=== PATIENT | female | born 1975 | race Caucasian/White ===

== ENCOUNTER 2020-01-10 07:47 | Outpatient (CLI) | payer BC, SELFPAY ==
--- NOTE | ~2020-01-10 | MM_ITS ---
EXAMINATION: MM screening [facility] BI w jacque HISTORY: Screening TECHNIQUE: Craniocaudal and mediolateral oblique 3-D tomosynthesis images were obtained and synthetic 2-D images were generated. CAD analysis was submitted and interpreted. COMPARISON: Comparison to multiple prior studies sequentially, with oldest reviewed study dated 08/2017. BREAST PARENCHYMAL COMPOSITION: There are scattered areas of fibroglandular density. FINDINGS: There is no evidence of suspicious mass, calcification, or architectural distortion to sugg est malignancy in either breast. There has been no suspicious interval change. IMPRESSION: 1. No mammographic evidence of malignancy. 2. Recommend routine screening mammography in one year. BI-RADS Category 1: Negative Reviewed, dictated and finalized at location A.
== END 2020-01-10 07:48 | disposition home or self-care (01) ==
LOC: ANHIMG 07:49
PROVIDERS: PCP Internal Medicine; Visit Provider Obstetrics & Gynecology
DX: Z12.31 Encounter for screening mammogram for malignant neoplasm of breast (principal)
CPT/HCPCS: 77063; 77067

== ENCOUNTER 2021-02-01 08:34 | Outpatient (CLI) | payer BC, SELFPAY ==
--- NOTE | ~2021-02-01 | MM_ITS ---
EXAMINATION: MM screening [facility] BI w jacque HISTORY: Screening TECHNIQUE: Craniocaudal and mediolateral oblique 3-D tomosynthesis images were obtained and synthetic 2-D images were generated. CAD analysis was submitted and interpreted. COMPARISON: Comparison to multiple prior studies sequentially, with oldest reviewed study dated 08/2017. BREAST PARENCHYMAL COMPOSITION: There are scattered areas of fibroglandular density. FINDINGS: The right breast is stable without evidence for malignancy. There are developing asymmetrie s in the subareolar location of the left breast. There are no suspicious calcifications. IMPRESSION: 1. Developing left breast asymmetries. 2. Additional mammographic views and possible breast ultrasound are recommended. BI-RADS Category 0: Incomplete: Needs additional imaging evaluation. Reviewed, dictated and finalized at location A. IMPRESSION: 1. Developing left breast asymmetries. 2. Additional mammographic views and possible breast ultrasound are recommended . BI-RADS Category 0: Incomplete: Needs additional imaging evaluation.
== END 2021-02-01 08:35 | disposition home or self-care (01) ==
LOC: ANHIMG 08:36
PROVIDERS: PCP Internal Medicine; Visit Provider Obstetrics & Gynecology
DX: Z12.31 Encounter for screening mammogram for malignant neoplasm of breast (principal); R92.8 Other abnormal and inconclusive findings on diagnostic imaging of breast
CPT/HCPCS: 77063; 77067

== ENCOUNTER → 2021-02-02 05:14 | Outpatient (CLI) | payer BC, SELFPAY ==
[2021-02-03 01:26] LABS: SARS-CoV-2 RNA PCR Negative
== END ==
PROVIDERS: PCP Internal Medicine; Visit Provider Internal Medicine
DX: R68.89 Other general symptoms and signs (principal); Z20.822 Contact with and (suspected) exposure to COVID-19
CPT/HCPCS: C9803; U0003; U0005

== ENCOUNTER 2021-02-17 13:36 | Outpatient (CLI) | payer BC, SELFPAY ==
--- NOTE | ~2021-02-17 | MMUS_ITS ---
EXAMINATION: MM diagnostic [facility] LT w jacque, US breast LT limited HISTORY: Follow-up left breast mass TECHNIQUE: Additional 3-D tomosynthesis images of the left breast were performed and synthetic 2-D im ages were generated. CAD analysis was submitted and interpreted. High resolution Limited left breast ultrasound was performed. COMPARISON: 02/01/2021 BREAST PARENCHYMAL COMPOSITION: Breast composed of scattered areas of fibroglandular density. FINDINGS: MAMMOGRAPHIC FINDINGS: There is a 1 cm circumscribed radiolucent mass in the subareolar location of the left breast. There a re no suspicious calcifications or architectural distortion. ULTRASOUND: Limited left breast ultrasound: At 6:00 near the nipple there is a 10 x 7 x 5 mm cyst corresponding t o the mammographic finding. No suspicious masses to suggest malignancy. IMPRESSION: 1. No evidence for malignancy in the left breast. Benign cyst. 2. Routine yearly screening mammogram and regular clinical breast examination are recommended. BI-RADS Category 2: Benign finding(s). Reviewed, dictated and finalized at location A. IMPRESSION: 1. No evidence for malignancy in the left breast. Benign cyst. 2. Routine yearly screening mammogram and regular clinical breast examination a re recommended. BI-RADS Category 2: Benign finding(s).
== END 2021-02-17 13:37 | disposition home or self-care (01) ==
LOC: ANHIMG 13:38
PROVIDERS: PCP Internal Medicine; Visit Provider Obstetrics & Gynecology
DX: N60.02 Solitary cyst of left breast (principal)
CPT/HCPCS: 76642; 77061; 77065; G0279

== ENCOUNTER 2022-04-12 08:19 | Outpatient (CLI) | payer OTHER, SELFPAY ==
--- NOTE | ~2022-04-12 | MM_ITS ---
EXAMINATION: MM screening [facility] BI w jacque HISTORY: Screening mammogram TECHNIQUE: Craniocaudal and mediolateral oblique 3-D tomosynthesis images were obtained and synthetic 2-D images were generated. CAD analysis was submitted and interpreted. COMPARISON: 02/17/2021, 02/01/2021, 01/10/2020 BREAST PARENCHYMAL COMPOSITION: There are scattered areas of fibroglandular density. FINDINGS: RIGHT BREAST: There is a possible mass in the middle third of the upper breast best appreciated 9 cm from the nipple on the mediolateral oblique view. LEFT BREAST: No suspicious mass, calcification, or architectural distortion are identified to suggest malignancy. There has been no suspicious interval change. IMPRESSION: 1. Possible right breast mass. 2. Additional mammographic views and possible breast ultrasound are recommended. BI-RADS Category 0: Incomplete: Needs additional imaging evaluation. Reviewed, dictated and finalized at location A. S PROCESSING WORKER IMPRESSION: 1. Possible right breast mass. 2. Additional mammographic views and possible breast ultrasound are recommended . BI-RADS Category 0: Incomplete: Needs additional imaging evaluation.
== END 2022-04-12 08:20 | disposition home or self-care (01) ==
PROVIDERS: PCP Internal Medicine; Visit Provider Obstetrics & Gynecology
DX: Z12.31 Encounter for screening mammogram for malignant neoplasm of breast (principal)
CPT/HCPCS: 77063; 77067

== ENCOUNTER 2022-05-16 12:06 | Outpatient (CLI) | payer OTHER, SELFPAY ==
--- NOTE | ~2022-05-16 | MM_ITS ---
EXAMINATION: MM diagnostic [facility] RT w jacque HISTORY: Possible right breast mass reported in middle third of upper breast 9 cm from nipple on MLO view of 04/12/2022 screening mammogram TECHNIQUE: Additional 3-D tomosynthesis images of the right breast were performed and synthetic 2-D i mages were generated. CAD analysis was submitted and interpreted. COMPARISON: 04/12/2022, 02/01/2021, 01/2020 bilateral screening mammogram examinations FINDINGS: Circumscribed approximately 4.5 x 7 mm mass is noted posteriorly in the lower mid right kiana ast (ML Tomosynthesis image 39/92; craniocaudal Tomosynthesis image 29/91); the relatively low-densit y and circumscribed margins suggest probably benign process but this is new or increased in size comp ared to prior studies. Up to approximately 6 x 11.5 mm circumscribed opacity is suggested in the upper mid right breast (ML Tomosynthesis image 47/92; craniocaudal spot Tomosynthesis image 51/92). This likewise has mammograph ic features most suggestive of benign process. Ultrasound correlation was recommended at this time, but the patient declined examination today pendi ng further discussion with her referring physician for financial reasons. No suspicious mass or architectural distortion, malignant calcification, skin thickening or retractio n is noted otherwise. IMPRESSION: 1. Suggested right breast masses can with features most suggestive of benign process 2. Ultrasound correlation is recommended. (If the patient wishes to forego ultrasound examination of this time for financial reasons, consider 6 month diagnostic right mammogram follow-up alternatively. ) BI-RADS Category 0: Incomplete: Needs additional imaging evaluation. Reviewed, dictated and finalized at location A. SINE MACHINE TENDER IMPRESSION: 1. Suggested right breast masses can with features most suggestive of benign pr ocess 2. Ultrasound correlation is recommended. (If the patient wishes to forego ultr asound examination of this time for financial reasons, consider 6 month diagnos tic right mammogram follow-up alternatively.) BI-RADS Category 0: Incomplete: Needs additional imaging evaluation.
== END 2022-05-16 12:07 | disposition home or self-care (01) ==
LOC: ANHIMG 12:08
PROVIDERS: PCP Internal Medicine; Visit Provider Obstetrics & Gynecology
DX: N63.10 Unspecified lump in the right breast, unspecified quadrant (principal); R92.8 Other abnormal and inconclusive findings on diagnostic imaging of breast
CPT/HCPCS: 77061; 77065; G0279

== ENCOUNTER 2022-08-04 16:07 | Outpatient (CLI) | payer OTHER, SELFPAY ==
[2022-08-04 17:06] LABS: Strep Group A RT-PCR NOT DETECTED (Negative)
== END 2022-08-04 16:08 | disposition home or self-care (01) ==
PROVIDERS: PCP Internal Medicine; Visit Provider Nurse Practitioner Family
DX: J02.9 Acute pharyngitis, unspecified (principal)
CPT/HCPCS: 87651

== ENCOUNTER 2023-08-22 10:00 | Emergency (ER) | payer OTHER, SELFPAY ==
--- NOTE | ~2023-08-22 | XR_ITS ---
EXAMINATION: XR knee RT min 4V DATE: 08/22/2023 10:33 INDICATION: Posterolateral right knee pain post fall TECHNIQUE: Anteroposterior, 2 oblique and crosstable lateral views of the right knee were obtained COMPARISON: None. FINDINGS: Alignment is normal. No fracture. Small marginal osteophytes in the medial and patellofemoral compar tments consistent with at least mild osteoarthritis. No significant joint space narrowing appreciated although this can be underestimated on nonweightbearing imaging. Additional osteoarthritis with smal l marginal osteophytes at the proximal tibiofibular articulation. No joint effusion/layering lipohema rthrosis. Soft tissues are unremarkable. IMPRESSION: 1. Mild osteoarthritis of the right knee. No joint effusion or acute osseous abnormality. Reviewed, dictated and finalized at location A. IMPRESSION: 1. Mild osteoarthritis of the right knee. No joint effusion or acute osseous ab normality.
[2023-08-22 10:11] VITALS: BP 141/61; PULSE 70; RESP 20; TEMP 36.6; O2SAT 100
--- NOTE | 2023-08-22 10:25 | ED.LOWEXIN ---
HPI - Extremity Injury (Lower) General Chief Complaint: Extremity Injury, Lower Stated Complaint: Injured right leg Time Seen by Provider: 08/22/23 10:15 Source: patient Mode of arrival: ambulatory Limitations: no limitations History of Present Illness HPI Narrative: Reema is a 47-year-old female patient presenting to the clinic today with complaints of right knee pain. She reports she tripped over a box a few days ago and injured her right knee. She is reporting pain to the posterior and anterior knee. Is using crutches to alleviate putting full weight on the right leg as she has significant pain. No obvious deformity or swelling noted Related Data Allergies Allergy/AdvReac Type Severity Reaction Status Date / Time No Known Allergies Allergy Verified 08/22/23 10:17 Review of Systems Review of Systems: All systems reviewed & are unremarkable except as noted in HPI and below PMFSH Past Medical History Medical History Asthma Essential hypertension Hyperlipidemia with low HDL Lower abdominal pain Morbid obesity Nausea Seasonal allergies Surgical History Surgical History H/O section Family History Family History Sibling Family history of multiple sclerosis Mother Family history of lupus erythematosus Family history of osteoporosis Patient's mother is in good health Family history of arthritis Grandparent Hypertension Family history of alcoholism Father Patient's father is in good health Other Family history of congestive heart failure Social History Social History Smoking status: Never smoker Second hand tobacco smoke exposure: No Alcohol intake: never Substance use: never Substance use type: does not use Lack of Transportation: No Lack of Food: Never True Current Housing: I Have Housing Concerned About Future Housing: No Difficulty Paying Gas/Electric Bills: No Difficulty Paying for Meds: No Currently Unemployed: No Education: Bachelor's Degree Difficulty w/ Childcare or Family Care: No Comments At the time of my signature, I reviewed and agree with the nursing past medical, surgical, social, and family history. There is no relevant family history pertinent to the patient complaint. Exam Narrative: General: Well-developed, well nourished, in no apparent distress Head: Normocephalic, atraumatic. Cardio: Regular rate and rhythm, s1 and s2 normal, no murmur appreciated. Resp: Clear to auscultation bilaterally, no rhonchi, rales, wheezing or rubs. Musculoskeletal: No deformity, tender to palpation over the anterior and posterior knee, no pain over the medial or lateral knee, pain with full flexion and full extension of the right knee, no crepitus palpable, mild pain with anterior and posterior drawer testing but without laxity, no pain or laxity with valgus and varus testing, grossly normal range of motion, muscle strength strong and equal, peripheral pulse strong, no edema, no cyanosis, normal gait and station Course Course Emergency Course: Portions of this record may have been created with voice recognition software. Level of Care: Express Care Visit Vital Signs Vital signs: Vital Signs Temperature 36.6 C 08/22/23 10:11 Pulse Rate 70 08/22/23 10:11 Respiratory Rate 20 08/22/23 10:11 Blood Pressure 141/61 H 08/22/23 10:11 Pulse Oximetry 100 08/22/23 10:11 Oxygen Delivery Room Air 08/22/23 10:11 Temperature 36.6 C 08/22/23 10:11 Pulse Rate 70 08/22/23 10:11 Respiratory Rate 20 08/22/23 10:11 Blood Pressure 141/61 H 08/22/23 10:11 Pulse Oximetry 100 08/22/23 10:11 Oxygen Delivery Room Air 08/22/23 10:11 Vital signs reviewed MDM - Extremity Injury (Lower) MDM Narrative M
== END 2023-08-22 11:03 | disposition home or self-care (01) ==
PROVIDERS: Emergency Provider Nurse Practitioner Family; PCP Nurse Practitioner
DX: M25.561 Pain in right knee (principal); M17.11 Unilateral primary osteoarthritis, right knee; J45.909 Unspecified asthma, uncomplicated; I10 Essential (primary) hypertension; E78.5 Hyperlipidemia, unspecified; E66.01 Morbid (severe) obesity due to excess calories; Z68.42 Body mass index [BMI] 45.0-49.9, adult
CPT/HCPCS: 73564; 99213; G0463

== ENCOUNTER 2024-06-30 10:08 | Emergency (ER) | payer OTHER, SELFPAY ==
--- OUTSIDE RECORDS SUMMARY | 2024-06-30 10:22 | XMS_ITS ---
Author Organization [facility] Address [address] [place] [address] Care Team Providers Care Paint Laboratory Technician Name Role Phone EligioCarl Primary Care Provider Alex Wise [phone] REASON FOR VISIT SCIT (Aeroallergen) Encounters Encounter Location Date Provider Diagnosis [facility] [address] [place] [address] 06/12/2024 Alex Headley Plan Of Treatment Next Appt Details Provider Name:Alex Headley , 07/24/2024 08:30:00 AM, [address], [place], [address], Provider Name:Zamzam carlson, 10/14/2024 08:30:00 AM, [address], [place], [address], Progress Notes * Antonella HOUSEDOB:[birth year] (48 yo F)Acc No.[id number]:06/12/2024 SCIT-Aeroallergen Patient: Antonella FISHER Provider: Jonatan Headley MD :1975 A ge:48 Y S ex:Female Date:06/12/2024 Address:[address] [place] [address] , [place], [id number] Pcp:Carl Del Valle Subjective: * Chief Complaints: * 1 . SCIT (Aeroallergen). * Medical History: Objective: * Vitals: Assessment: Plan: * Treatment: * Billing Information: * Visit Code: * Procedure Codes: * Electronic signature of Edgar Headley MD, FAAAAI on 06/30/2024 at 10:22 AM GERIATRIC NURSING ASSISTANT Sign off status: Pending * Provider: Jonatan Headley MD Date: 0 06/12/2024 Generated for Aleksandr combs/Olayinka/Jesusitting on: 0 06/30/2024 10:22 AM GERIATRIC NURSING ASSISTANT
--- OUTSIDE RECORDS SUMMARY | 2024-06-30 10:22 | XMS_ITS | Referral Summary ---
Author Organization [facility] Address [address] [place] [address] Care Team Providers Care Business Office Director Name Role Phone Bart Posey NP Primary Care Provider [phone] Adiel Romero MD Unavailable [phone] Social History Tobacco Use Types Packs/Day Years Used Date Smoking Tobacco: Never Assessed Personal Safety Answer Date Recorded Getting School Help Needed Not on file 06/05 Comments Unknown Sex and Gender Information Value Date Recorded Sex Assigned at Not on file Legal Sex Female 1:48 PM CDT Gender Identity Not on file Sexual Orientation Not on file Plan of Treatment Not on file Procedures Procedure Name Priority Date/Time Associated Diagnosis Comments SCREENING MAMMOGRAM BILATERAL W MAURO Schedule Routine, Read Routine (OP Routine) 06/06/2023 10:35 AM [employer] Screening mammogram, encounter for from Last 3 Months or Most Recently Relevant to Health Maintenance Results * Screening Mammogram Bilateral W Mauro (06/06/2023 10:35 AM [employer]) Anatomical Region Laterality Modality Breast Bilateral Mammography Narrative 06/09/2023 4:55 PM [employer] Mammogram Technique: Bilateral Digital Breast Tomosynthesis, Bilateral C-view 2D Screening mammogram. Views obtained: bilateral craniocaudal and bilateral mediolateral oblique. Computer Aided Detection was performed. Mammogram Findings: The present examination has been compared to prior imaging studies performed at [facility] on 02/17/2021, 04/12/2022 and 05/16/2022. There are scattered areas of fibroglandular density. There is a focal asymmetry in the middle of the right breast at 12 o'clock. There is no suspicious abnormality in the left breast. Impression: Focal asymmetry in the right breast requires additional evaluation. Diagnostic mammogram and possible ultrasound of the right breast are recommended at this time. Additional evaluation of this finding was also recommended at time of previous mammogram in 2022 but has not yet been performed, to our knowledge. OVERALL FINAL ASSESSMENT: BI-RADS CATEGORY 0: Incomplete: Need additional imaging evaluation. Procedure Note Sana Patel MD - 06/09/2023 Mammogram Technique: Bilateral Digital Breast Tomosynthesis, Bilateral C-view 2D Screening mammogram. Views obtained: bilateral craniocaudal and bilateral mediolateral oblique. Computer Aided Detection was performed. Mammogram Findings: The present examination has been compared to prior imaging studies performed at [facility] on 02/17/2021, 04/12/2022 and 05/16/2022. There are scattered areas of fibroglandular density. There is a focal asymmetry in the middle of the right breast at 12o'clock. There is no suspicious abnormality in the left breast. Impression: Focal asymmetry in the right breast requires additional evaluation. Diagnostic mammogram and possible ultrasound of the right breast are recommended at this time. Additional evaluation of this finding was also recommended at time of previous mammogram in 2022 but has not yet been performed, to ourknowledge. OVERALL FINAL ASSESSMENT: BI-RADS CATEGORY 0: Incomplete: Need additional imaging evaluation. us Self Screening Mammogram IMG MAMMO PROCEDURES Fi nal Result from Last 3 Months or Most Recently Relevant to Health Maintenance Insurance [employer] Care Teams Business Office Director Relationship Specialty Start Date End Date Bart Posey NP [address] [facility] [address] [place] [address] PCP - General Nurse Practitioner 06/05/23 Adiel Romero MD [address] [facility] [address] [place] [address] Referring Physician Obstetrics and Gynecology 06/06/23
--- OUTSIDE RECORDS SUMMARY | 2024-06-30 10:22 | XMS_ITS ---
Author Organization [facility] Address [address] [place] [address] Care Team Providers Care Quality Supervisor Name Role Phone Carl Del Valle Primary Care Provider Alex Wise Unavailable [phone] REASON FOR VISIT SCIT - Traditional Schedule Allergy immunotherapy Medications Medication SIG (Take, Route, Frequency, Duration) Notes Start Date End Date Status Flonase Allergy Relief 50 MCG/ACT as directed in each nostril once a day Not-Taking Simvastatin 20 MG 1 tab(s) orally once a day (at bedtime) Not-Taking CONTROL PILL 1 TABLET BY MOUTH DAILY *Please review for potential replacement for e-prescription and drug interaction check* Not-Taking ZyrTEC Allergy 10 MG 1 tablet PO QD Not-Taking FLONASE ALLERGY RELIEF 50 mcg/inh as directed in each nostril once a day Not-Taking LISINOPRIL 10 mg 1 tab(s) orally once a day Not-Taking SIMVASTATIN 20 mg 1 tab(s) orally once a day (at bedtime) Not-Taking SIMVASTATIN 20 mg 1 tab(s) orally once a day (at bedtime) for 30 day(s) Not-Taking MONTELUKAST 10 mg 1 tab(s) orally 30 minutes prior to SCIT dosing for 30 day(s) Not-Taking EPIPEN 2-MARY 0.3 mg as directed intramuscularly once for 30 days Not-Taking FAMOTIDINE 40 mg 1 tab(s) orally 30 mins prior to SCIT for 30 days Not-Taking FLUTICASONE NASAL 50 mcg/inh 2 spray(s) in each nostril BID for 30 day(s) Not-Taking CETIRIZINE 10 mg 1 tab(s) orally once a day for 30 days Not-Taking ZYRTEC 10mg 1 tablet PO QD Not -Taking MONTELUKAST 10 mg 1 tab(s) orally 30 minutes prior to SCIT dosing for 30 day(s) Not-Taking Lisinopril 10 MG 1 tab(s) orally once a day Active Simvastatin 20 MG 1 tab(s) orally once a day (at bedtime) for 30 day(s) Active Montelukast Sodium 10 MG 1 tab(s) orally 30 minutes prior to SCIT dosing for 30 day(s) Active Fluticasone Propionate 50 MCG/ACT 2 spray(s) in each nostril BID for 30 day(s) Active Cetirizine HCl 10 MG 1 tab(s) orally once a day for 30 days Active SIT (TRADITIONAL) variable per schedule SC per schedule for to be determined Active MONTELUKAST 10 mg 1 tab(s) orally 30 minutes prior to SCIT dosing for 30 days Active NASAL WASHES N/A as directed intranasally as needed for 30 Active FLUTICASONE NASAL 50 mcg/inh 2 spray(s) in each nostril BID for 30 day(s) Active ZyrTEC 10mg 1 tablet PO QD Not -Taking CETIRIZINE 10 mg 1 tab(s) orally once a day for 30 days Active EpiPen 2-Mary 0.3 mg as directed intramuscularly once for 30 days Active Famotidine 40 mg 1 tab(s) orally 30 mins prior to SCIT for 30 days Active Encounters Encounter Location Date Provider Diagnosis [facility] [address] [place] [address] 06/27/2024 Alex Headley Allergic rhinitis du e to pollen J30.1 ; Allergic rhinitis due to animal (cat) (dog) hair and dander J30.81 ; Other allergic rhinitis J30.89 and Other chronic allergic conjunctivitis H10.45 Assessments Encounter Date Diagnosis (ICD Code) Assessment Notes Treatment Notes Treatment Clinical Notes Section Notes 06/27/2024 Allergic rhinitis due to pollen (ICD-10 - J30.1) 06/27/2024 Allergic rhinitis due to animal (cat) (dog) hair and dander (ICD-10 - J30.81) 06/27/2024 Other allergic rhinitis (ICD-10 - J30.89) 06/27/2024 Other chronic allergic conjunctivitis (ICD-10 - H10.45) Plan Of Treatment Next Appt Details Follow Up: 1 Week, Reason: Provider Name:Alex Gagnon Kayode , 07/24/2024 08:30:00 AM, [address] [place] [address], [phone], Provider Name:Zamzam John carlson, 10/14/2024 08:30:00 AM, [address], [address], [place], [address], Progress Notes * Antonella HOUSEDOB:[birth year] (48 yo F)Acc No.[id number]:06/27/2024 SCIT-Aeroallergen Patient: Antonella FISHER Provider: Jonatan Headley MD :1975 A ge:48 Y S ex:Female Date:06/27/2024 Address:[address] [place], [place] [id number] Pcp:Carl Del Valle Subjective: * Chief Complaints: * S CIT - Traditional Schedule Allergy immunotherapy * HPI: * Introduction: The patient is here for scheduled immunotherapy. Please see the attached specialty form regarding the specifics of the administration of these vaccines. As per our protocol, they must undergo a screening health questionnaire (medication changes, reaction(s) to last immunotherapy dose(s), current health status, ACT (if appropriate), self-injectable epinephrine on patient(?) and peak flow (if appropriate)). Also, the patient must wait in our office for 30 minutes after receiving the vaccine(s). Furthermore, every patient must have an epinephrine pen (self-injectable) with them at the time of administration--and carry if for the following 1.5 hours after they leave our office. The patient must also have taken their antihistamine the day of the injection, preferably 2 hours prior. The consent form for SCIT (subcutaneous immunotherapy) is on file. * Medical History: * Surgical History: * Hospitalization/Major Diagno stic Procedure: * Medications: T akingFamotidine 40 mg tablet 1 tab(s) orally 30 mins prior to SCIT EpiPen 2-Mary 0.3 mg kit as directed intramuscularly once Famotidine 40 mg tablet 1 tab(s) orally 30 mins prior to SCIT EpiPen 2-Mary 0.3 mg kit as directed intramuscularly once CETIRIZINE 10 mg tablet 1 tab(s) orally once a day FLUTICASONE NASAL 50 mcg/inh spray 2 spray(s) in each nostril BID NASAL WASHES N/A 1 quart of sterilized tap water or distilled water, 1 tsp NaCl, 1 pinch of baking soda as directed intranasally as needed MONTELUKAST 10 mg tablet 1 tab(s) orally 30 minutes prior to SCIT dosing SIT (TRADITIONAL) variable see record per schedule SC per schedule Cetirizine HCl 10 MG Tablet 1 tab(s) orally once a day Fluticasone Propionate 50 MCG/ACT Suspension 2 spray(s) in each nostril BID Montelukast Sodium 10 MG Tablet 1 tab(s) orally 30 minutes prior to SCIT dosing Simvastatin 20 MG Tablet 1 tab(s) orally once a day (at bedtime) Lisinopril 10 MG Tablet 1 tab(s) orally once a day Taking Famotidine 40 mg tablet 1 tab(s) orally 30 mins prior to SCIT Taking EpiPen 2-Mary 0.3 mg kit as directed intramuscularly once Taking Famotidine 40 mg tablet 1 tab(s) orally 30 mins prior to SCIT Taking EpiPen 2-Mary 0.3 mg kit as directed intramuscularly once Taking CETIRIZINE 10 mg tablet 1 tab(s) orally once a day Taking FLUTICASONE NASAL 50 mcg/inh spray 2 spray(s) in each nostril BID Taking NASAL WASHES N/A 1 quart of sterilized tap water or distilled water, 1 tsp NaCl, 1 pinch of baking soda as directed intranasally as needed Taking MONTELUKAST 10 mg tablet 1 tab(s) orally 30 minutes prior to SCIT dosing Taking SIT (TRADITIONAL) variable see record per schedule SC per schedule Taking Cetirizine HCl 10 MG Tablet 1 tab(s) orally once a day Taking Fluticasone Propionate 50 MCG/ACT Suspension 2 spray(s) in each nostril BID Taking Montelukast Sodium 10 MG Tablet 1 tab(s) orally 30 minutes prior to SCIT dosing Taking Simvastatin 20 MG Tablet 1 tab(s) orally once a day (at bedtime) Taking Lisinopril 10 MG Tablet 1 tab(s) orally once a day Not-Taking/PRNZyrTEC 10mg tablet 1 tablet PO QD MONTELUKAST 10 mg tablet 1 tab(s) orally 30 minutes prior to SCIT dosing ZYRTEC 10mg tablet 1 tablet PO QD CETIRIZINE 10 mg tablet 1 tab(s) orally once a day FLUTICASONE NASAL 50 mcg/inh spray 2 spray(s) in each nostril BID FAMOTIDINE 40 mg tablet 1 tab(s) orally 30 mins prior to SCIT EPIPEN 2-MARY 0.3 mg kit as directed intramuscularly once MONTELUKAST 10 mg tablet 1 tab(s) orally 30 minutes prior to SCIT dosing SIMVASTATIN 20 mg tablet 1 tab(s) orally once a day (at bedtime) SIMVASTATIN 20 mg tablet 1 tab(s) orally once a day (at bedtime) LISINOPRIL 10 mg tablet 1 tab(s) orally once a day FLONASE ALLERGY RELIEF 50 mcg/inh spray as directed in each nostril once a day ZyrTEC Allergy 10 MG Tablet 1 tablet PO QD CONTROL PILL 1 TABLET BY MOUTH DAILY , Notes to Pharmacist: *Please review for potential replacement for e-prescription and drug interaction check*Simvastatin 20 MG Tablet 1 tab(s) orally once a day (at bedtime) Flonase Allergy Relief 50 MCG/ACT Suspension as directed in each nostril once a day Not-Taking/PRN ZyrTEC 10mg tablet 1 tablet PO QD Not-Taking/PRN MONTELUKAST 10 mg tablet 1 tab(s) orally 30 minutes prior to SCIT dosing Not-Taking/PRN ZYRTEC 10mg tablet 1 tablet PO QD Not-Taking/PRN CETIRIZINE 10 mg tablet 1 tab(s) orally once a day Not-Taking/PRN FLUTICASONE NASAL 50 mcg/inh spray 2 spray(s) in each nostril BID Not-Taking/PRN FAMOTIDINE 40 mg tablet 1 tab(s) orally 30 mins prior to SCIT Not-Taking/PRN EPIPEN 2-MARY 0.3 mg kit as directed intramuscularly once Not-Taking/PRN MONTELUKAST 10 mg tablet 1 tab(s) orally 30 minutes prior to SCIT dosing Not-Taking/PRN SIMVASTATIN 20 mg tablet 1 tab(s) orally once a day (at bedtime) Not-Taking/PRN SIMVASTATIN 20 mg tablet 1 tab(s) orally once a day (at bedtime) Not-Taking/PRN LISINOPRIL 10 mg tablet 1 tab(s) orally once a day Not-Taking/PRN FLONASE ALLERGY RELIEF 50 mcg/inh spray as directed in each nostril once a day Not-Taking/PRN ZyrTEC Allergy 10 MG Tablet 1 tablet PO QD Not- Taking/PRN CONTROL PILL 1 TABLET BY MOUTH DAILY , Notes to Pharmacist: *Please review for potential replacement for e-prescription and drug interaction check*Not- Taking/PRN Simvastatin 20 MG Tablet 1 tab(s) orally once a day (at bedtime) Not-Taking/PRN Flonase Allergy Relief 50 MCG/ACT Suspension as directed in each nostril once a day Objective: * Vitals: Assessment: * Assessment: 1. A llergic rhinitis due to pollen - J30.1 (Primary) 2 . A llergic rhinitis due to animal (cat) (dog) hair and dander - J30.81 3 . O ther allergic rhinitis - J30.89 4 . O ther chronic allergic conjunctivitis - H10.45 Plan: * Treatment: * Procedure Codes: 9 5117 IMMUNOTHERAPY INJECTIONS * Preventive Medicine: Counseling: E xercise A void heavy lifting on days of allergy immunotherapy. M edication instruction: I njectable epinephrine education and instruction w/ discussion of signs and symptoms of anaphylaxis and reasons to seek urgent or emergent care, Watch for side effects of prescribed medications. E ducation: A ble to return demonstration of self-injectable epinephrine. * Follow Up: 1 Week * Billing Information: * Visit Code: * Procedure Codes: 40898 IMMUNOTHERAPY INJECTIONS. * EXTINGUISHER TESTER Sign off status: Completed true * Provider: Jonatan Headley MD Date: 06/27/2024 Generated for Aleksandr combs/Olayinka/Gabriella on: 06/30/2024 10:22 AM FIRE EXTINGUISHER TESTER History and Physical Notes * HPI (History of Present Illness) Category Sub-Category Detail Notes Category Not es *Introduction The patient is here for scheduled immunotherapy. Please see the attached specialty form regarding the specifics of the administration of these vaccines. As per our protocol, they must undergo a screening health questionnaire (medication changes, reaction(s) to last immunotherapy dose(s), current health status, ACT (if appropriate), self-injectable epinephrine on patient(?) and peak flow (if appropriate)). Also, the patient must wait in our office for 30 minutes after receiving the vaccine(s). Furthermore, every patient must have an epinephrine pen (self-injectable) with them at the time of administration--and carry if for the following 1.5 hours after they leave our office. The patient must also have taken their antihistamine the day of the injection, preferably 2 hours prior. The consent form for SCIT (subcutaneous immunotherapy) is on file.
--- OUTSIDE RECORDS SUMMARY | 2024-06-30 10:22 | XMS_ITS | Clinical Summary ---
Author Organization [facility] [address] Address [address] [facility] [address] [place] [address] Phone Care Team Providers Care Bread Packer Name Role Phone Unavailable Primary Care Provider Unavailabl e Social History Tobacco Use Types Packs/Day Years Used Date Smoking Tobacco: Never Assessed Comments Unknown Sex and Gender Information Value Date Recorded Sex Assigned at Not on file Legal Sex Female 9:02 AM CDT Gender Identity Not on file Sexual Orientation Not on file Plan of Treatment Health Maintenance Due Date Last Done Comments DTAP/TDAP/TD VACCINES (1 - Tdap) 1996 HEPATITIS B VACCINES (1 of 3 - 19+ 3-dose series) 1996 CERVICAL CANCER SCREENING 12/01/2007 BREAST CANCER SCREENING 2017 COLORECTAL SCREENING 2022 Colorectal Cancer Screening 2022 FIT-DNA Q 3 years 2022 FIT/FOBT Q 1 year 2022 Flex Sig/CT Colonography Q 5 years 2022 INFLUENZA VACCINE (#1) 2023 HPV VACCINES Aged Out No longer eligi ble based on patient's age to complete this topic PNEUMOCOCCAL VACCINE 0-64 YEARS Aged Out No longer eligible based on patient's age to complete this topic
--- OUTSIDE RECORDS SUMMARY | 2024-06-30 10:22 | XMS_ITS | Continuity of Care Document ---
Author Organization [facility] Address [address] [place] [address] Phone Care Team Providers Care Pull Up Hand Name Role Phone Unavailable Unavailable Unavailable Advance Directives Directive Yes / No Effective Date File Name No Information Encounters Encounter Description Practice Location Reason(s) For Visit Diagnoses Date Provider Providers Copied on Encounter [facility], [address] [facility], [place], [place], [id number], [place] tel:[phone] [facility] No Information No Information Referring Provider: WESLY Vazquez, [address], [place], [address]. tel:[phone] Family History Family Member Type Diagnosis Age At Onset No Information Payers Payer name Insurance type Covered republican ID Authoriza tion(s) No Information Social History Type Description Quantity Date Captured Comments Sex Female Smoking Status No Information Chief Complaint And Reason For Visit No Information History Of Present Illness Encounter Date Complaint History Of Prese nt Illness No Information Instructions Date Instruction Additional Infor mation No Information Assessments Type Assessment Date No Information
--- OUTSIDE RECORDS SUMMARY | 2024-06-30 10:23 | XMS_ITS | Encounter Summary ---
Author Organization [facility] Address [address] [place] [address] Care Team Providers Care Skin Care Instructor Name Role Phone Randy Elizabeth MD Primary Care Provider [phone] Reason for Visit * Diagnostic Imaging (Routine) - Pending Review Specialty Diagnoses / Procedures Referred By Contac t Referred To Contact Procedures Breast Imaging Screening Outside Reference Transcribed Order, Provider Referral ID Status Reason Start Date Expiration Date V isits Requested Visits Authorized [id number] Pending Review 06/08/2023 07/07/2024 1 1 Encounter Details Date Type Department Care Team (Late st Contact Info) Description 12/29/2018 Hospital Encounter [facility] [address] [place] [address] Social History Tobacco Use Types Packs/Day Years Used Date Smoking Tobacco: Never Assessed Personal Safety Answer Date Recorded Getting School Help Needed Not on file 06/05 Comments Unknown Sex and Gender Information Value Date Recorded Sex Assigned at Not on file Legal Sex Female 1:48 PM CDT Gender Identity Not on file Sexual Orientation Not on file documented as of this encounter Plan of Treatment Not on file documented as of this encounter Procedures Procedure Name Priority Date/Time Associated Diagnosis Comments BREAST IMAGING MG SCREENING OUTSIDE REFERENCE Routine 12/29/2018 12:00 AM CDT documented in this encounter Results * Breast Imaging Screening Outside Reference (12/29/2018 12:00 AM CDT) Impressions RAD_MAMMO_[facility] - 06/08/2023 3:03 PM METAL SPRAY OPERATOR These images are for Reference purposes only and have not been reviewed by [facility]. There will be no report generated by a [facility] Radiologist. Narrative RAD_MAMMO_[facility] - 06/08/2023 3:03 PM METAL SPRAY OPERATOR EXAMINATION: Images For Reference Purposes Only us Provider Transcribed Order IMG MAMMO PROCEDURES Final Result RAD_MAMMO_[facility] documented in this encounter Visit Diagnoses Not on filedocumented in this encounter Care Teams Skin Care Instructor Relationship Specialty Start Date End Date Randy Elizabeth MD [address] [place], [place] [id number] PCP - General Internal Medicine 08/08/18 06/04/23 documented as of this encounter
--- OUTSIDE RECORDS SUMMARY | 2024-06-30 10:23 | XMS_ITS | Encounter Summary ---
Author Organization [facility] Healthcare Address [address] [place] [address] Care Team Providers Care Streetcar Starter Name Role Phone Unavailable Primary Care Provider Unavailabl e Reason for Visit * Diagnostic Imaging (Routine) - Pending Review Specialty Diagnoses / Procedures Referred By Contac t Referred To Contact Procedures Breast Imaging Screening Outside Reference Transcribed Order, Provider Referral ID Status Reason Start Date Expiration Date V isits Requested Visits Authorized [id number] Pending Review 06/08/2023 07/07/2024 1 1 Encounter Details Date Type Department Care Team (Late st Contact Info) Description 12/09/2017 Hospital Encounter [facility] [address] [place] [id number] Social History Tobacco Use Types Packs/Day Years [...] BREAST IMAGING MG SCREENING OUTSIDE REFERENCE Routine 12/09/2017 12:00 AM CDT documented in this encounter Results * Breast Imaging Screening Outside Reference (12/09/2017 12:00 AM CDT) Impressions RAD[facility]MAMMO_[facility] - 06/08/2023 3:03 PM MAINFRAME SYSTEMS ADMINISTRATOR These images are for Reference purposes only and have not been reviewed by [facility]. There will be no report generated by a [facility] Radiologist. Narrative RAD_MAMMO_[facility] - 06/08/2023 3:03 PM MAINFRAME SYSTEMS ADMINISTRATOR EXAMINATION: Images For Reference Purposes Only us Provider Transcribed Order IMG MAMMO PROCEDURES Final Result [facility]_MAMMO[facility] documented in this encounter Visit Diagnoses Not on filedocumented in this encounter
--- OUTSIDE RECORDS SUMMARY | 2024-06-30 10:23 | XMS_ITS | Encounter Summary ---
Author Organization [facility] Healthcare Address [address] [place] [address] Care Team Providers Care Biometric Screener Name Role Phone Randy Elizabeth MD Primary Care Provider [phone] Reason for Visit * Diagnostic Imaging (Routine) - Pending Review Specialty Diagnoses / Procedures Referred By Contac t Referred To Contact Procedures Breast Imaging Screening Outside Reference Transcribed Order, Provider Referral ID Status Reason Start Date Expiration Date V isits Requested Visits Authorized [id number] Pending Review 06/08/2023 07/07/2024 1 1 Encounter Details Date Type Department Care Team (Late st Contact Info) Description 01/10/2020 Hospital Encounter [facility] [address] [place] [id number] Social History Tobacco Use Types Packs/Day [...] BREAST IMAGING MG SCREENING OUTSIDE REFERENCE Routine 01/10/2020 12:00 AM CDT documented in this encounter Results * Breast Imaging Screening Outside Reference (01/10/2020 12:00 AM CDT) Impressions RAD_MAMMO_[facility] - 06/08/2023 3:03 PM ELEMENTARY ART TEACHER These images are for Reference purposes only and have not been reviewed by [facility]. There will be no report generated by a [facility] Radiologist. Narrative RAD_MAMMO_[facility] - 06/08/2023 3:03 PM ELEMENTARY ART TEACHER EXAMINATION: Images For Reference Purposes Only us Provider Transcribed Order IMG MAMMO PROCEDURES Final Result [facility]_M[facility] documented in this encounter Visit Diagnoses Not on filedocumented in this encounter Care Teams Biometric Screener Relationship Specialty Start Date End Date Randy Elizabeth MD [address] [place], [place] [id number] PCP - General Internal Medicine 08/08/18 06/04/23 documented as of this encounter
--- OUTSIDE RECORDS SUMMARY | 2024-06-30 10:23 | XMS_ITS ---
Author Organization [facility] Address [address] [place] [address] Care Team Providers Care Technical Instructor Name Role Phone Carl Del Valle Primary Care Provider Alex Wise Unavailable [phone] REASON FOR VISIT SCIT - Traditional Schedule Allergy immunotherapy Medications Medication SIG (Take, Route, Frequency, Duration) Notes Start Date End Date Status Cetirizine HCl 10 MG 1 tab(s) orally once a day for 30 days Active Fluticasone Propionate 50 MCG/ACT 2 spray(s) in each nostril BID for 30 day(s) Active MONTELUKAST 10 mg 1 tab(s) orally 30 minutes prior to SCIT dosing for 30 days Active SIT (TRADITIONAL) variable per schedule SC per schedule for to be determined Active ZyrTEC 10mg 1 tablet PO QD Not -Taking CETIRIZINE 10 mg 1 tab(s) orally once a day for 30 days Active Simvastatin 20 MG 1 tab(s) orally once a day (at bedtime) Not-Taking FLUTICASONE NASAL 50 mcg/inh 2 spray(s) in each nostril BID for 30 day(s) Active Flonase Allergy Relief 50 MCG/ACT as directed in each nostril once a day Not-Taking NASAL WASHES N/A as directed intranasally as needed for 30 Active Famotidine 40 mg 1 tab(s) orally 30 mins prior to SCIT for 30 days Active EpiPen 2-Mary 0.3 mg as directed intramuscularly once for 30 days Active FLONASE ALLERGY RELIEF 50 mcg/inh as directed in each nostril once a day Not-Taking ZyrTEC Allergy 10 MG 1 tablet PO QD Not-Taking CONTROL PILL 1 TABLET BY MOUTH DAILY *Please review for potential replacement for e-prescription and drug interaction check* Not-Taking SIMVASTATIN 20 mg 1 tab(s) orally once a day (at bedtime) for 30 day(s) Not-Taking SIMVASTATIN 20 mg 1 tab(s) orally once a day (at bedtime) Not-Taking LISINOPRIL 10 mg 1 tab(s) orally once a day Not-Taking EPIPEN 2-MARY 0.3 mg as directed intramuscularly once for 30 days Not-Taking MONTELUKAST 10 mg 1 tab(s) orally 30 minutes prior to SCIT dosing for 30 day(s) Not-Taking CETIRIZINE 10 mg 1 tab(s) orally once a day for 30 days Not-Taking FLUTICASONE NASAL 50 mcg/inh 2 spray(s) in each nostril BID for 30 day(s) Not-Taking FAMOTIDINE 40 mg 1 tab(s) orally 30 mins prior to SCIT for 30 days Not-Taking MONTELUKAST 10 mg 1 tab(s) orally 30 minutes prior to SCIT dosing for 30 day(s) Not-Taking ZYRTEC 10mg 1 tablet PO QD Not -Taking Montelukast Sodium 10 MG 1 tab(s) orally 30 minutes prior to SCIT dosing for 30 day(s) Active Simvastatin 20 MG 1 tab(s) orally once a day (at bedtime) for 30 day(s) Active Lisinopril 10 MG 1 tab(s) orally once a day Active Encounters Encounter Location Date Provider Diagnosis [facility] [address] [place] [address] 05/29/2024 Alex Headley Allergic rhinitis du e to pollen J30.1 ; Allergic rhinitis due to animal (cat) (dog) hair and dander J30.81 ; Other allergic rhinitis J30.89 and Other chronic allergic conjunctivitis H10.45 Assessments Encounter Date Diagnosis (ICD Code) Assessment Notes Treatment Notes Treatment Clinical Notes Section Notes 05/29/2024 Allergic rhinitis due to pollen (ICD-10 - J30.1) 05/29/2024 Allergic rhinitis due to animal (cat) (dog) hair and dander (ICD-10 - J30.81) 05/29/2024 Other allergic rhinitis (ICD-10 - J30.89) 05/29/2024 Other chronic allergic conjunctivitis (ICD-10 - H10.45) Plan Of Treatment Next Appt Details Follow Up: 1 Week, Reason: Provider Name:Alex Gagnon Kayode , 07/24/2024 08:30:00 AM, [address], [address] [place] [address], [phone], Provider Name:Zamzam John carlson, 10/14/2024 08:30:00 AM, [address], [place], [address], Progress Notes * Antonella HOUSEDOB:[birth year] (48 yo F)Acc No.[id number]:05/29/2024 SCIT-Aeroallergen Patient: Antonella FISHER Provider: Jonatan Headley MD :1975 A ge:48 Y S ex:Female Date:05/29/2024 Address:[address] [place], [place] [id number] Pcp:Carl Del Valle Subjective: * Chief Complaints: [...] Information: * Visit Code: * Procedure Codes: 61949 IMMUNOTHERAPY INJECTIONS. * D NUTRITION ASSISTANT Sign off status: Completed true * Provider: Jonatan Headley MD Date: 0 05/29/2024 Generated for Aleksandr combs/Olayinka/eTnicki on: 0 06/30/2024 10:22 AM CHILD NUTRITION ASSISTANT History and Physical Notes * HPI (History [...]
--- OUTSIDE RECORDS SUMMARY | 2024-06-30 10:23 | XMS_ITS | Clinical Summary ---
Author Organization [facility] Address [facility] [place] [address] Care Team Providers Care Clinical Appeals Rn Name Role Phone Bart Posey NP Primary Care Provider [phone] Adiel Romero MD Unavailable [phone] Social History Tobacco Use Types Packs/Day Years [...] Health Maintenance Due Date Last Done Comments Cervical Cancer Screening 1977 Colon Cancer Screening-Colonoscopy 1977 Depression Screening 1977 Hepatitis C Screening 1977 Hepatitis B Screening 12/01/1995 Regular Well Visit/Exam 18-64 12/01/1995 Covid-19 Vaccine (2023- 5 season) 2024 07/30/2020 Influenza Vaccine (#1) 2024 02/07/2018 Breast Cancer Screening-Mammogram 06/06/2024 024 DTaP/Tdap/Td Vaccine (2 - Td or Tdap) 04/20/2025 04/20/2015 HPV Vaccines Aged Out No longer eligi ble based on patient's age to complete this topic Pneumococcal vaccine <65 Aged Out No longer eligible based on patient's age to complete this topic Procedures Procedure Name Priority Date/Time Associated Diagnosis Comments SCREENING MAMMOGRAM BILATERAL W MAURO Schedule Routine, Read Routine (OP Routine) 06/06/2023 10:35 AM MANAGER TITLE Screening mammogram, encounter for from Last 3 Months or Most Recently Relevant to Health Maintenance Results * Screening Mammogram Bilateral W Mauro (06/06/2023 10:35 AM MANAGER TITLE) Anatomical Region Laterality Modality Breast Bilateral Mammography Narrative 06/09/2023 4:55 PM MANAGER TITLE Mammogram Technique: Bilateral Digital Breast Tomosynthesis, Bilateral C-view 2D Screening mammogram. Views obtained: bilateral craniocaudal and bilateral mediolateral oblique. Computer Aided Detection was performed. Mammogram Findings: The present examination has been compared to prior imaging studies performed at [facility] on 02/17/2021, 04/12/2022 and 05/16/2022. There are [...] compared to prior imaging studies performed at [facility] on 02/17/2021, 04/12/2022 and 05/16/2022. There are [...] Most Recently Relevant to Health Maintenance Insurance CIG CIG Care Teams Clinical Appeals Rn Relationship Specialty Start Date End Date Bart Posey NP [address] [place], [place] [id number] PCP - General Nurse Practitioner 06/05/23 Adiel Romero MD [address] [address] Referring Physician Obstetrics and Gynecology 06/06/23
--- OUTSIDE RECORDS SUMMARY | 2024-06-30 10:26 | XMS_ITS | Continuity of Care Document ---
Author Organization [facility] Address [address] [place] [address] Phone Care Team Providers Care Registered Pharmacist Name Role Phone Unavailable Unavailable Unavailable Advance Directives Directive Yes / No Effective Date File Name No Information Encounters Encounter Description Practice Location Reason(s) For Visit Diagnoses Date Provider Providers Copied on Encounter [facility], [address] [facility], [place], [place], [id number], [place] tel:[phone] [facility] No Information No Information Referring Provider: WESLY Vazquez, [address], [place], [address]. tel:[phone] Family History Family Member Type Diagnosis Age At Onset No Information Payers Payer name Insurance type Covered constitution party ID Authoriza tion(s) No Information Social History Type Description Quantity Date Captured Comments Sex Female Smoking Status No Information Chief Complaint And Reason For Visit No Information History Of Present Illness Encounter Date Complaint History Of Prese nt Illness No Information Instructions Date Instruction Additional Infor mation No Information Assessments Type Assessment Date No Information
--- OUTSIDE RECORDS SUMMARY | 2024-06-30 10:26 | XMS_ITS | Patient Health Record ---
Author Organization [facility] Address [address] [place] [address] Care Team Providers Care Civil Attorney Name Role Phone Eligio Carl Primary Care Provider UnavailAlex Cruz Unavailable [phone] Saira Barroso Unavailable [phone] [employer], Provider Unavailable Unavailab le Allergies No Known Allergies Reason For Referral No Information Medications Medication SIG (Take, Route, Frequency, Duration) Notes Start Date End Date Status FAMOTIDINE 40 mg 1 tab(s) orally 30 [...] to SCIT dosing for 30 day(s) Active Famotidine 40 mg 1 tab(s) orally 30 mins prior to SCIT for 30 days Active EPIPEN 2-MARY 0.3 mg as directed intramuscularly once for 30 days Not-Taking FAMOTIDINE 40 mg 1 tab(s) orally 30 mins prior to SCIT for 30 days Active EPIPEN 2-MARY 0.3 mg as directed intramuscularly once for 30 days Active SIMVASTATIN 20 mg 1 tab(s) orally once a day (at bedtime) for 30 day(s) Not-Taking MONTELUKAST 10 mg 1 tab(s) orally 30 minutes prior to SCIT dosing for 30 day(s) Not-Taking SIT (TRADITIONAL) variable per schedule SC per schedule for to be determined Active MONTELUKAST 10 mg 1 tab(s) orally 30 minutes prior to SCIT dosing for 30 days Active Flonase Allergy Relief 50 MCG/ACT as directed in each nostril once a day Not-Taking NASAL WASHES N/A as directed intranasally as needed for 30 Active Simvastatin 20 MG 1 tab(s) orally once a day (at bedtime) Not-Taking FLUTICASONE NASAL 50 mcg/inh 2 spray(s) in each nostril BID for 30 day(s) Active CONTROL PILL 1 TABLET BY MOUTH DAILY *Please review for potential replacement for e-prescription and drug interaction check* Not-Taking CETIRIZINE 10 mg 1 tab(s) orally once a day for 30 days Active ZyrTEC Allergy 10 MG 1 tablet PO QD Not-Taking FLONASE ALLERGY RELIEF 50 mcg/inh as directed in each nostril once a day Not-Taking LISINOPRIL 10 mg 1 tab(s) orally once a day Not-Taking EpiPen 2-Mary 0.3 mg as directed intramuscularly once for 30 days Active SIMVASTATIN 20 mg 1 tab(s) orally once a day (at bedtime) Not-Taking Cetirizine HCl 10 MG 1 tab(s) orally once a day for 30 days Active ZyrTEC 10mg 1 tablet PO QD Not -Taking Fluticasone Propionate 50 MCG/ACT 2 spray(s) in each nostril BID for 30 day(s) Active Social History Tobacco Use: Social History Observation Description Date Details (start date - stop date) Never Smoker NA - NA Tobacco Control (Standard) Question Answer Notes Tobacco use: Nonsmoker Problems Problem Type SNOMED Code ICD Code Onset Dates Problem Status W/U Status Risk Notes Problem Shortness of breath (197857843) Shortness of breath (R06.02) Active confirmed Problem Chronic allergic conjunctivitis (54148720) Other chronic allergic conjunctivitis (H10.45) Active confirmed Problem Essential hypertension (12222869) Essential (primary) hypertension (I10) Active confirmed Problem Allergic rhinitis caused by pollen (disorder) (13981543) Allergic rhinitis due to pollen (J30.1) Active confirmed Problem Allergic rhinitis caused by animal hair and dander (129599764137090) Allergic rhinitis due to animal (cat) (dog) hair and dander (J30.81) Active confirmed Problem Allergic rhinitis (91614807) Other allergic rhinitis (J30.89) Active confirmed Problem Disorder of vocal cord (36808773) 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) Active confirmed Problem Allergic rhinitis caused by pollen (disorder) (36152612) Allergic rhinitis due to pollen (J30.1) Active confirmed Problem Allergic rhinitis caused by animal hair and dander (330147940895493) Allergic rhinitis due to animal (cat) (dog) hair and dander (J30.81) Active confirmed Problem Allergic rhinitis (17836190) Other allergic rhinitis (J30.89) Active confirmed Problem Chronic allergic conjunctivitis (65644318) Other chronic allergic conjunctivitis (H10.45) Active confirmed Problem Chronic cough (72109449) Chronic cough (R05.3) Active confirmed Vital Signs Oximetry 97 % 04/10/2024 Blood pressure diastolic 84 mm Hg 04/10/2024 Height 64 in 04/10/2024 Blood pressure systolic 139 mm Hg 04/10/2024 Weight 287.4 lbs 04/10/2024 BMI 49.33 kg/m2 04/10/2024 Encounters Encounter Location Date Provider Diagnosis [address] [address] 10/21/2023 Provider [facility] [address] [address] 07/05/2023 Alex Headley Allergic rhinitis du e to pollen J30.1 ; Allergic rhinitis due to animal (cat) (dog) hair and dander J30.81 ; Other allergic rhinitis J30.89 and Other chronic allergic conjunctivitis H10.45 [facility] [address] [address] 07/12/2023 Alex Headley Allergic rhinitis du e to pollen J30.1 ; Allergic rhinitis due to animal (cat) (dog) hair and dander J30.81 ; Other allergic rhinitis J30.89 and Other chronic allergic conjunctivitis H10.45 [facility] [address] [place] [address] [address] 07/26/2023 Alex Kayode Allergic rhinitis du e to pollen J30.1 ; Allergic rhinitis due to animal (cat) (dog) hair and dander J30.81 ; Other allergic rhinitis J30.89 and Other chronic allergic conjunctivitis H10.45 [facility] [address] [place] [address] [address] 08/23/2023 Alexida Headley Allergic rhinitis du e to pollen J30.1 ; Allergic rhinitis due to animal (cat) (dog) hair and dander J30.81 ; Other allergic rhinitis J30.89 and Other chronic allergic conjunctivitis H10.45 [facility] [address] [place] [address] 09/20/2023 Alex Headley Allergic rhinitis du e to pollen J30.1 ; Allergic rhinitis due to animal (cat) (dog) hair and dander J30.81 ; Other allergic rhinitis J30.89 and Other chronic allergic conjunctivitis H10.45 [facility] [address] [place] [address] [address] 10/18/2023 Alex Headley Allergic rhinitis du e to pollen J30.1 ; Allergic rhinitis due to animal (cat) (dog) hair and dander J30.81 ; Other allergic rhinitis J30.89 and Other chronic allergic conjunctivitis H10.45 [facility] [address] [place] [address] [address] 11/15/2023 Alex Headley Allergic rhinitis du e to pollen J30.1 ; Allergic rhinitis due to animal (cat) (dog) hair and dander J30.81 ; Other allergic rhinitis J30.89 and Other chronic allergic conjunctivitis H10.45 [facility] [address] [place] [address] [address] 12/20/2023 Alex Headley Allergic rhinitis du e to pollen J30.1 ; Allergic rhinitis due to animal (cat) (dog) hair and dander J30.81 ; Other allergic rhinitis J30.89 and Other chronic allergic conjunctivitis H10.45 [facility] [address] [place] [address] [address] 01/17/2024 Alex Kayode Allergic rhinitis du e to pollen J30.1 ; Allergic rhinitis due to animal (cat) (dog) hair and dander J30.81 ; Other allergic rhinitis J30.89 and Other chronic allergic conjunctivitis H10.45 [facility] [address] [place] [address] [address] 02/14/2024 Alex Kayode Allergic rhinitis du e to pollen J30.1 ; Allergic rhinitis due to animal (cat) (dog) hair and dander J30.81 ; Other allergic rhinitis J30.89 and Other chronic allergic conjunctivitis H10.45 [facility] [address] [place] [address] [address] 03/13/2024 Alex Headley Allergic rhinitis du e to pollen J30.1 ; Allergic rhinitis due to animal (cat) (dog) hair and dander J30.81 ; Other allergic rhinitis J30.89 and Other chronic allergic conjunctivitis H10.45 [facility] [address] [place] [address] [address] 04/10/2024 Saira Barroso Allergic rhinitis du e to pollen J30.1 ; Allergic rhinitis due to animal (cat) (dog) hair and dander J30.81 ; Other allergic rhinitis J30.89 ; Other chronic allergic conjunctivitis H10.45 ; Chronic cough R05.3 ; Shortness of breath R06.02 ; Other diseases of vocal cords J38.3 and Essential (primary) hypertension I10 [facility] [address] [place] [address] [address] 05/15/2024 Alex Headley Allergic rhinitis du e to pollen J30.1 ; Allergic rhinitis due to animal (cat) (dog) hair and dander J30.81 ; Other allergic rhinitis J30.89 and Other chronic allergic conjunctivitis H10.45 [facility] [address] [place] [address] [address] 05/22/2024 Alex Headley Allergic rhinitis du e to pollen J30.1 ; Allergic rhinitis due to animal (cat) (dog) hair and dander J30.81 ; Other allergic rhinitis J30.89 and Other chronic allergic conjunctivitis H10.[address] [address] 05/29/2024 Alex Kayode Allergic rhinitis du e to pollen J30.1 ; Allergic rhinitis due to animal (cat) (dog) hair and dander J30.81 ; Other allergic rhinitis J30.89 and Other chronic allergic conjunctivitis H10.[address] [address] 06/27/2024 Alex Headley Allergic rhinitis du e to pollen J30.1 ; Allergic rhinitis due to animal (cat) (dog) hair and dander J30.81 ; Other allergic rhinitis J30.89 and Other chronic allergic conjunctivitis H10.[address] [address] 04/10/2024 Alex Headley Assessments Encounter Date Diagnosis (ICD Code) Assessment Notes Treatment Notes Treatment Clinical Notes Section Notes 07/05/2023 Allergic rhinitis due to pollen (ICD-10 - J30.1) 07/12/2023 Allergic rhinitis due to pollen (ICD-10 - J30.1) 07/26/2023 Allergic rhinitis due to pollen (ICD-10 - J30.1) 08/23/2023 Allergic rhinitis due to pollen (ICD-10 - J30.1) 09/20/2023 Allergic rhinitis due to pollen (ICD-10 - J30.1) 10/18/2023 Allergic rhinitis due to pollen (ICD-10 - J30.1) 11/15/2023 Allergic rhinitis due to pollen (ICD-10 - J30.1) 12/20/2023 Allergic rhinitis due to pollen (ICD-10 - J30.1) 01/17/2024 Allergic rhinitis due to pollen (ICD-10 - J30.1) 02/14/2024 Allergic rhinitis due to pollen (ICD-10 - J30.1) 03/13/2024 Allergic rhinitis due to pollen (ICD-10 - J30.1) 04/10/2024 Allergic rhinitis due to pollen (ICD-10 - J30.1) Antonella clearly suffers from atopic disease based upon our skin testing and clinical history. Accordingly, we have introduced a new, aggressive medication regimen, discussed nasal washes and allergy-specific avoidance measures. We also discussed adjunctive therapies including subcutaneous, specific allergen immunotherapy as relates to the treatment and prevention of atopic disease. She continues on SCIT, reaching MM in 06/2023. She is set to have vials remade, but wants to discuss OOP first. - Dosing tolerated today without large local or systemic symptoms concerning for anaphylaxis. - Continue medications as listed above. Continue triple premedication. Consider holding Singulair at next follow-up if she remains asymptomatic. - AIE on hand and up to date. Patient was instructed that epinephrine needs to be carried to each immunotherapy visit and should be carried 2 hrs after dosing. - Follow-up in 1 week for dosing and 6 months for E&M 05/15/2024 Allergic rhinitis due to pollen (ICD-10 - J30.1) 05/22/2024 Allergic rhinitis due to pollen (ICD-10 - J30.1) 05/29/2024 Allergic rhinitis due to pollen (ICD-10 - J30.1) 04/10/2024 Allergic rhinitis due to animal (cat) (dog) hair and dander (ICD-10 - J30.81) Follow allergen avoidance, meds and continue SCIT as an adjunctive treatment to current regimen 06/27/2024 Allergic rhinitis due to pollen (ICD-10 - J30.1) 06/27/2024 Allergic rhinitis due to animal (cat) (dog) hair and dander (ICD-10 - J30.81) 05/29/2024 Allergic rhinitis due to animal (cat) (dog) hair and dander (ICD-10 - J30.81) 05/22/2024 Allergic rhinitis due to animal (cat) (dog) hair and dander (ICD-10 - J30.81) 05/15/2024 Allergic rhinitis due to animal (cat) (dog) hair and dander (ICD-10 - J30.81) 04/10/2024 Other allergic rhinitis (ICD-10 - J30.89) Follow allergen avoidance, meds and continue SCIT as an adjunctive treatment to current regimen 03/13/2024 Allergic rhinitis due to animal (cat) (dog) hair and dander (ICD-10 - J30.81) 02/14/2024 Allergic rhinitis due to animal (cat) (dog) hair and dander (ICD-10 - J30.81) 01/17/2024 Allergic rhinitis due to animal (cat) (dog) hair and dander (ICD-10 - J30.81) 12/20/2023 Allergic rhinitis due to animal (cat) (dog) hair and dander (ICD-10 - J30.81) 11/15/2023 Allergic rhinitis due to animal (cat) (dog) hair and dander (ICD-10 - J30.81) 10/18/2023 Allergic rhinitis due to animal (cat) (dog) hair and dander (ICD-10 - J30.81) 09/20/2023 Allergic rhinitis due to animal (cat) (dog) hair and dander (ICD-10 - J30.81) 08/23/2023 Allergic rhinitis due to animal (cat) (dog) hair and dander (ICD-10 - J30.81) 07/26/2023 Allergic rhinitis due to animal (cat) (dog) hair and dander (ICD-10 - J30.81) 07/12/2023 Allergic rhinitis due to animal (cat) (dog) hair and dander (ICD-10 - J30.81) 07/05/2023 Allergic rhinitis due to animal (cat) (dog) hair and dander (ICD-10 - J30.81) 07/05/2023 Other allergic rhinitis (ICD-10 - J30.89) 07/12/2023 Other allergic rhinitis (ICD-10 - J30.89) 07/26/2023 Other allergic rhinitis (ICD-10 - J30.89) 08/23/2023 Other allergic rhinitis (ICD-10 - J30.89) 09/20/2023 Other allergic rhinitis (ICD-10 - J30.89) 10/18/2023 Other allergic rhinitis (ICD-10 - J30.89) 11/15/2023 Other allergic rhinitis (ICD-10 - J30.89) 12/20/2023 Other allergic rhinitis (ICD-10 - J30.89) 01/17/2024 Other allergic rhinitis (ICD-10 - J30.89) 02/14/2024 Other allergic rhinitis (ICD-10 - J30.89) 03/13/2024 Other allergic rhinitis (ICD-10 - J30.89) 04/10/2024 Other chronic allergic conjunctivitis (ICD-10 - H10.45) Given ocular signs and symptoms I encouraged allergy avoidance measures and meds as above. If symptoms persist, consider adding additional medications including intraocular antihistamine/mas t cell stabilizer, PRN and continue SCIT as an adjunctive measure 05/15/2024 Other allergic rhinitis (ICD-10 - J30.89) 05/22/2024 Other allergic rhinitis (ICD-10 - J30.89) 05/29/2024 Other allergic rhinitis (ICD-10 - J30.89) 06/27/2024 Other allergic rhinitis (ICD-10 - J30.89) 04/10/2024 Chronic cough (ICD-10 - R05.3) Antonella previously reported frequent cough that worsened at night. Also exacerbated during Spring and Fall. She was prescribed a course of oral prednisone 07/2022 by her PCP for her cough, but states this did not help. Denies wheezing. Reports being prescribed an inhaler 6-7 years ago, unsure what type. For these reasons, spirometry was obtained at initial visit. Normal spirometry by FEV, FEV1, and FEV1%, inspiratory blunting c/w VCD. Antonella is currently taking lisinopril. Josues cough is likely multifactorial, consider ARC vs KELLEE inhibitor use vs other. -No interval cough or SOB. Continue to treat atopy as stated above. -Consider repeat spirometry for reoccurence 05/15/2024 Other chronic allergic conjunctivitis (ICD-10 - H10.45) 06/27/2024 Other chronic allergic conjunctivitis (ICD-10 - H10.45) 05/29/2024 Other chronic allergic conjunctivitis (ICD-10 - H10.45) 05/22/2024 Other chronic allergic conjunctivitis (ICD-10 - H10.45) 03/13/2024 Other chronic allergic conjunctivitis (ICD-10 - H10.45) 02/14/2024 Other chronic allergic conjunctivitis (ICD-10 - H10.45) 01/17/2024 Other chronic allergic conjunctivitis (ICD-10 - H10.45) 12/20/2023 Other chronic allergic conjunctivitis (ICD-10 - H10.45) 11/15/2023 Other chronic allergic conjunctivitis (ICD-10 - H10.45) 10/18/2023 Other chronic allergic conjunctivitis (ICD-10 - H10.45) 09/20/2023 Other chronic allergic conjunctivitis (ICD-10 - H10.45) 08/23/2023 Other chronic allergic conjunctivitis (ICD-10 - H10.45) 07/26/2023 Other chronic allergic conjunctivitis (ICD-10 - H10.45) 07/12/2023 Other chronic allergic conjunctivitis (ICD-10 - H10.45) 07/05/2023 Other chronic allergic conjunctivitis (ICD-10 - H10.45) 04/10/2024 Shortness of breath (ICD-10 - R06.02) See plan above 04/10/2024 Other diseases of vocal cords (ICD-10 - J38.3) Antonella previously presented with cough and occasional shortness of breath that typically occurs on inspiration. Based on history and spirometry likely VCD. Antonella was given an educational handout with exercises for VCD at last visit. Consider speech therapy. -No interval episodes of inspiratory SOB since initial visit 04/10/2024 Essential (primary) hypertension (ICD-10 - I10) BP elevated today without symptoms of urgency or emergency. Continue serial checks and follow-up with PCP. -Consider avoiding KELLEE inhibitors/ARB if cough returns Plan Of Treatment Next Appt Details Provider Name:Alex Headley , 07/24/2024 08:30:00 AM, [address], [address], Provider Name:Zamzam carlson, 10/14/2024 08:30:00 AM, [address], [address], [place], [address], Insurance Providers Payer Name Payer Address Payer Phone Subscriber Number Group Number Insured Name Patient Relationship to Insured Coverage Start Date Coverage End Date April [address] [place] [address] [id number] Antonella Anderson Self - patient is the insured Medical (General) History Medical History History ICD Code Essential (primary) hypertension I10 Surgical History Surgery Date(Month/Year) 2014 Hospitalization History Reason Date(Month/Year) See past surgeries
[2024-06-30 11:03] VITALS: BP 131/61; PULSE 108; RESP 18; TEMP 37.6; O2SAT 95
--- NOTE | 2024-06-30 11:34 | ED_ITS ---
HPI - URI/Sore Throat General Chief Complaint: Upper Respiratory Infection Stated Complaint: flu symptoms Source: patient and RN notes reviewed Mode of arrival: ambulatory Limitations: no limitations History of Present Illness HPI Narrative: 48-year-old female presented for complaint of sore throat, headache, body aches, sinus pressure/congestion, cough, fever/chills. Onset yesterday. Denies sob, wheezing, n/v/d. Taking ibuprofen. Endorses exposure to influenza. MD elicited complaint: cough Related Data Allergies Allergy/AdvReac Type Severity Reaction Status Date / Time No Known Allergies Allergy Verified 06/30/24 11:36 Review of Systems Review of Systems: Per HPI [facility] Past Medical History Medical History Seasonal allergies Nausea Lower abdominal pain Asthma Morbid obesity Essential hypertension Hyperlipidemia with low HDL Surgical History Surgical History H/O section Family History Family History Sibling Family history of multiple sclerosis Mother Family history of lupus erythematosus Family history of osteoporosis Patient's mother is in good health Family history of arthritis Grandparent Hypertension Family history of alcoholism Father Patient's father is in good health Other Family history of congestive heart failure Social History Social History Smoking status: Never smoker Second hand tobacco smoke exposure: No Alcohol intake: never Substance use: never Substance use type: does not use Do You Feel Safe in your Home?: Yes Lack of Transportation: No Lack of Food: Never True Current Housing: I Have Housing Concerned About Future Housing: No Difficulty Paying Gas/Electric Bills: No Difficulty Paying for Meds: No Currently Unemployed: No Education: Bachelor's Degree Difficulty w/ Childcare or Family Care: No Spiritual care concerns: No Agree to blood products: Yes Exam Narrative: GENERAL: Mildly Ill-appearing, nontoxic no acute distress. EYES: PERRLA, conjunctivae clear ENT: Mucous membranes moist. TM pearly leary with dull light reflex bilaterally; no tragal tenderness. Oropharynx erythematous without lesions or exudate, no drooling, no hoarseness, no trismus, uvula midline. No tripod positioning, muffled voice, soft palate or pharyngeal wall bulging NECK: Supple. No lymphadenopathy CHEST: Clear to auscultation, breath sounds equal. HEART: Regular rate and rhythm. No murmur heard. SKIN: Warm, dry, no rash. NEURO: Alert and oriented x3. PSYCH: Normal mood and affect Course Course Emergency Course: Patient is aware of diagnosis, understands and agrees to treatment plan. Anticipatory guidance given. Patient agrees to follow-up as directed and is aware of reasons to seek care at the emergency department. Portions of this record may have been created with voice recognition software Level of Care: Express Care Visit Vital Signs Vital signs: Vital Signs Temperature 99.7 F H 06/30/24 11:03 Pulse Rate 108 H 06/30/24 11:03 Respiratory Rate 18 06/30/24 11:03 Blood Pressure 131/61 06/30/24 11:03 Pulse Oximetry 95 06/30/24 11:03 Oxygen Delivery Room Air 06/30/24 11:03 Temperature 99.7 F H 06/30/24 11:03 Pulse Rate 108 H 06/30/24 11:03 Respiratory Rate 18 06/30/24 11:03 Blood Pressure 131/61 06/30/24 11:03 Pulse Oximetry 95 06/30/24 11:03 Oxygen Delivery Room Air 06/30/24 11:03 reviewed MDM - URI/Sore Throat MDM Narrative Medical decision making narrative: Discussed physical exam findings, POS flu. Advised supportive measures and signs/symptoms to go to the ER. Pt is appropriate for outpt treatment and f/u. Differential Diagnosis Differential diagnosis: Likely upper respiratory infection, sinusitis and viral infection Lab Data Labs: Lab Results 06/30/24 Range/Units 11:41 POC Influenza A Ag Positive (Negative) POC Influenza B Ag Negative (Negative) POC SARS CoV-2 Ag Negative (Negative) Discharge Plan Discharge Clinical Impression: Influenza Patient Disposition: Home, Self-Care Condition: Stable Instructions: Influenza (ED) Additional Instructions: Influenza positive You should avoid crowds until you are fever free for 24 hours without the use of fever reducing medications, or the symptoms are improved Rest. Drink plenty of fluids. Tylenol 1000mg every 8 hours as needed for pain/fever Flonase spray and Zyrtec (or Claritin/Lori) for sinus pressure/congestion over the counter Cough syrup may cause drowsiness; avoid driving or take it at night time. Follow up with your primary care provider as needed Go to the ER for worsening symptoms or concerns Patient Language: S[place] Prescriptions: New oseltamivir [Tamiflu] 75 mg capsule 75 mg PO Q12H 5 Days Qty: 10 0RF No Action fluticasone propionate [Children's Flonase Allergy Rlf] 50 mcg/actuation spray,suspension 2 spray intranasal DAILY Qty: 16 0RF Rx Instructions: administer into each nostril cetirizine [Zyrtec] 10 mg tablet 10 mg PO DAILY Qty: 30 0RF lisinopril 40 mg tablet 40 mg PO DAILY Qty: 90 1RF simvastatin 40 mg tablet 40 mg PO DAILY Qty: 90 1RF montelukast 10 mg tablet See Rx Instructions .ROUTE .COMPLEX Qty: 90 1RF Dose Instruction: TAKE 1 TABLET BY MOUTH EVERY DAY AT BEDTIME Rx Instructions: TAKE 1 TABLET BY MOUTH EVERY DAY AT BEDTIME Follow-up/Referrals: Chelsea Chatman APRN [Primary Care Provider] - Time of Disposition: 11:49
[2024-06-30 11:42] LABS: EDCOVIDSCREEN Negative (Negative); EDINFLUASCREEN Positive (Negative); EDINFLUBSCREEN Negative (Negative)
== END 2024-06-30 11:54 | disposition home or self-care (01) ==
PROVIDERS: Emergency Provider Nurse Practitioner Family; PCP Nurse Practitioner Family
DX: J10.1 Influenza due to other identified influenza virus with other respiratory manifestations (principal); Z20.822 Contact with and (suspected) exposure to COVID-19; J45.909 Unspecified asthma, uncomplicated; I10 Essential (primary) hypertension; E78.5 Hyperlipidemia, unspecified; E66.01 Morbid (severe) obesity due to excess calories; Z68.42 Body mass index [BMI] 45.0-49.9, adult
CPT/HCPCS: 87426; 87804; 99213; G0463

== ENCOUNTER 2024-07-10 14:41 | Outpatient (CLI) | payer OTHER, SELFPAY ==
--- NOTE | ~2024-07-10 | MM_ITS ---
EXAMINATION: MM screening [facility] BI w jacque HISTORY: Screening mammogram TECHNIQUE: Craniocaudal and mediolateral oblique 3-D tomosynthesis images were obtained and synthetic 2-D images were generated. CAD analysis was submitted and interpreted. COMPARISON: 04/12/2022, 02/01/2021 BREAST PARENCHYMAL COMPOSITION:Not Dense. There are scattered areas of fibroglandular density. FINDINGS: Low-density lobulated mass at the upper right breast is more conspicuous than on prior exam . Stable small low-density masses in the left breast. No suspicious mammographic calcifications. IMPRESSION: More conspicuous low-density lobulated mass of the upper right breast. Ultrasound recommended for fur ther evaluation. BI-RADS Category 0: Incomplete: Needs additional imaging evaluation. Reviewed, dictated and finalized at [facility]. 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 Ultrasou nd recommended for further evaluation. BI-RADS Category 0: Incomplete: Needs additional imaging evaluation.
--- OUTSIDE RECORDS SUMMARY | 2024-07-10 16:26 | XMS_ITS | Encounter Summary ---
Author Organization [facility] Healthcare Address [address] [place] [address] Care Team Providers Care Timber Buyer Name Role Phone Randy Elizabeth MD Primary Care Provider [phone] Reason for Visit * Diagnostic Imaging (Routine) - Closed Specialty Diagnoses / Procedures Referred By Contac t Referred To Contact Procedures Breast Imaging Screening Outside Reference Transcribed Order, Provider Referral ID Status Reason Start Date Expiration Date Visits Re quested Visits Authorized [id number] Closed 06/08/2023 07/07/2024 1 1 Encounter Details Date Type Department Care Team (Late st Contact Info) Description 12/29/2018 Hospital Encounter [facility] [address] [place] [id number] Social History Tobacco Use Types Packs/Day [...] Outside Reference (12/29/2018 12:00 AM CDT) Impressions RAD_MAMMO_[facility] - 06/08/2023 3:03 PM GUIDE SETTER These images are for Reference purposes only and have not been reviewed by [facility] Radiology. There will be no report generated by a [facility] Radiologist. Narrative [facility]_MAMMO_[facility] - 06/08/2023 3:03 PM GUIDE SETTER EXAMINATION: Images For Reference Purposes Only us Provider Transcribed Order IMG MAMMO PROCEDURES Final Result [facility] documented in this encounter Visit Diagnoses Not on filedocumented in this encounter Care Teams Timber Buyer Relationship Specialty Start Date End Date Randy Elizabeth MD [address] [place] [address] PCP - General Internal Medicine 08/08/18 06/04/23 documented as of this encounter
--- OUTSIDE RECORDS SUMMARY | 2024-07-10 16:26 | XMS_ITS | Continuity of Care Document ---
Author Organization [facility] Address [address] [place] [address] Phone Care Team Providers Care Cement Mason Name Role Phone Unavailable Unavailable Unavailable Advance Directives Directive Yes / No Effective Date File Name No Information Encounters Encounter Description Practice Location Reason(s) For Visit Diagnoses Date Provider Providers Copied on Encounter [facility], [address] [facility], [place], [place], [id number], [place] tel:[phone] [facility] No Information No Information Referring Provider: WESLY Vazquez, [address], [place], [address]. tel:[phone] Family History Family Member Type Diagnosis Age [...]
--- OUTSIDE RECORDS SUMMARY | 2024-07-10 16:26 | XMS_ITS ---
Author Organization [facility] Address [address] [place] [address] Care Team Providers Care Utilization Reviewer Name Role Phone Carl Del Valle Primary Care Provider Alex Wise Unavailable [phone] REASON FOR VISIT SCIT - Traditional Schedule [...] Active Encounters Encounter Location Date Provider Diagnosis [facility] [address] [place] [address] 06/27/2024 Alex Headley Allergic rhinitis du e [...] Gagnon Kayode , 07/24/2024 08:30:00 AM, [address], [address] [place] [address], [address], Provider Name:Zamzam Jhon carlson, 10/14/2024 08:30:00 AM, [address], [address], [place], [address], Progress Notes * Antonella HOUSEDOB:[birth year] (48 yo F)Acc No.[id number]:06/27/2024 SCIT-Aeroallergen Patient: Antonella FISHER Provider: Jonatan Headley MD :1975 A ge:48 Y S ex:Female Date:06/27/2024 Address:[address] [place], [place] [id number] Pcp:Carl Del Valle Subjective: * Chief Complaints: [...] Information: * Visit Code: * Procedure Codes: 58653 IMMUNOTHERAPY INJECTIONS. * O OPERATOR Sign off status: Completed true * Provider: Jonatan Headley MD Date: 0 06/27/2024 Generated for Aleksandr combs/Olayinka/Gabriella on: 0 07/10/2024 04:26 PM TURBO OPERATOR History and Physical Notes * HPI (History [...]
--- OUTSIDE RECORDS SUMMARY | 2024-07-10 16:26 | XMS_ITS ---
Author Organization [facility] Address [address] [place] [address] Care Team Providers Care Matcher Leather Parts Name Role Phone EligioCarl Primary Care Provider Alex Wise [phone] REASON FOR VISIT SCIT (Aeroallergen) Encounters Encounter Location Date Provider Diagnosis [facility] [address] [place] [address] 06/12/2024 Alex Headley Plan Of Treatment Next Appt Details Provider Name:Alex Headley , 07/24/2024 08:30:00 AM, [address], [address], [place], [address], Provider Name:Zamzam carlson, 10/14/2024 08:30:00 AM, [address], [address], [place], [address], Progress Notes * Antonella HOUSEDOB:[birth year] (48 yo F)Acc No.[id number]:06/12/2024 SCIT-Aeroallergen Patient: Antonella FISHER Provider: Jonatan Headley MD :1975 A ge:48 Y S ex:Female Date:06/12/2024 Address:[address] [place] [address] , [place], [facility] Pcp:Carl Del Valle Subjective: * Chief Complaints: * 1 . SCIT (Aeroallergen). * Medical History: Objective: * Vitals: Assessment: Plan: * Treatment: * Billing Information: * Visit Code: * Procedure Codes: * Electronic signature of Edgar Headley MD, FAAAAI on 07/10/2024 at 04:26 PM COOPERATIVE EDUCATION COORDINATOR Sign off status: Pending * Provider: Jonatan Headley MD Date: 0 06/12/2024 Generated for Aleksandr combs/Olayinka/Jesusitting on: 0 07/10/2024 04:26 PM COOPERATIVE EDUCATION COORDINATOR
--- OUTSIDE RECORDS SUMMARY | 2024-07-10 16:26 | XMS_ITS | Referral Summary ---
Author Organization [facility] Address [address] [place] [address] Care Team Providers Care Mixer Helper Name Role Phone Bart Posey NP Primary Care Provider [phone] Adiel Romero MD Unavailable [phone] Social History Tobacco Use Types Packs/Day Years [...] Read Routine (OP Routine) 06/06/2023 10:35 AM COMMERCIAL CREDIT OFFICER Screening mammogram, encounter for from Last 3 Months or Most Recently Relevant to Health Maintenance Results * Screening Mammogram Bilateral W Mauro (06/06/2023 10:35 AM COMMERCIAL CREDIT OFFICER) Anatomical Region Laterality Modality Breast Bilateral Mammography Narrative 06/09/2023 4:55 PM COMMERCIAL CREDIT OFFICER Mammogram Technique: Bilateral Digital Breast Tomosynthesis, Bilateral C-view 2D Screening mammogram. Views obtained: bilateral craniocaudal and bilateral mediolateral oblique. Computer Aided Detection was performed. Mammogram Findings: The present examination has been compared to prior imaging studies performed at [facility] on 02/17/2021, 04/12/2022 and 05/16/2022. There are [...] compared to prior imaging studies performed at [facility] on 02/17/2021, 04/12/2022 [...] Health Maintenance Insurance [employer] Care Teams Mixer Helper Relationship Specialty Start Date End Date Bart Posey NP [address] [facility] [address] [place] [address] PCP - General Nurse Practitioner 06/05/23 Adiel Romero MD [address] [facility] [address] [place] [address] Referring Physician Obstetrics and Gynecology 06/06/23
--- OUTSIDE RECORDS SUMMARY | 2024-07-10 16:26 | XMS_ITS | Clinical Summary ---
Author Organization [facility] [address] Address [address] [facility] 3[address] [place] [address] Phone Care Team Providers Care Prepared Foods Team Leader Name Role Phone Unavailable Primary Care Provider [...] age to complete this topic PNEUMOCOCCAL VACCINE 0-49 YEARS Aged Out No longer eligible based on patient's age to complete this topic
--- OUTSIDE RECORDS SUMMARY | 2024-07-10 16:26 | XMS_ITS ---
Author Organization [facility] Address [address] [place] [address] Care Team Providers Care Janitorial Supervisor Name Role Phone Carl Del Valle Primary Care Provider Alex Wise Unavailable [phone] REASON FOR VISIT SCIT - Traditional Schedule [...] Active Encounters Encounter Location Date Provider Diagnosis [facility] [address] [place] [address] 05/29/2024 Alex Headley Allergic rhinitis du e [...] Gagnon Kayode , 07/24/2024 08:30:00 AM, [address] [employer], [address] [place] [address], [address], Provider Name:Zamzam John carlson, 10/14/2024 08:30:00 AM, [address], [address], [place], [address], Progress Notes * Antonella HOUSEDOB:[birth year] (48 yo F)Acc No.[id number]:05/29/2024 SCIT-Aeroallergen Patient: Antonella FISHER Provider: Jonatan Headley MD :1975 A ge:48 Y S ex:Female Date:05/29/2024 Address:[address] [place], [place] [id number] Pcp:Carl Del Valle Subjective: * Chief Complaints: [...] Information: * Visit Code: * Procedure Codes: 49348 IMMUNOTHERAPY INJECTIONS. * SEARCH ANALYST Sign off status: Completed true * Provider: Jonatan Headley MD Date: 0 05/29/2024 Generated for Aleksandr combs/Olayinka/Gabriella on: 0 07/10/2024 04:26 PM PAID SEARCH ANALYST History and Physical Notes * HPI (History [...]
--- OUTSIDE RECORDS SUMMARY | 2024-07-10 16:26 | XMS_ITS | Encounter Summary ---
Author Organization [facility] Healthcare Address [address] [place] [address] Care Team Providers Care Monotype Machinist Name Role Phone Randy Elizabeth MD Primary Care Provider [phone] Reason for Visit * Diagnostic Imaging (Routine) - Closed Specialty Diagnoses / Procedures Referred By Contac t Referred To Contact Procedures Breast Imaging Screening Outside Reference Transcribed Order, Provider Referral ID Status Reason Start Date Expiration Date Visits Re quested Visits Authorized [id number] Closed 06/08/2023 07/07/2024 1 1 Encounter Details Date Type Department Care Team (Late st Contact Info) Description 01/10/2020 Hospital Encounter [facility] [address] [place] [address] Social History Tobacco Use Types Packs/Day [...] Outside Reference (01/10/2020 12:00 AM CDT) Impressions RAD_MAMMO_[facility] - 06/08/2023 3:03 PM NETWORK SYSTEMS ENGINEER These images are for Reference purposes only and have not been reviewed by [facility] Radiology. There will be no report generated by a [facility] Radiologist. Narrative [facility]_MAMMO_[facility] - 06/08/2023 3:03 PM NETWORK SYSTEMS ENGINEER EXAMINATION: Images For Reference Purposes Only us Provider Transcribed Order IMG MAMMO PROCEDURES Final Result [facility] documented in this encounter Visit Diagnoses Not on filedocumented in this encounter Care Teams Monotype Machinist Relationship Specialty Start Date End Date Randy Elizabeth MD [address] [place] [address] PCP - General Internal Medicine 08/08/18 06/04/23 documented as of this encounter
--- OUTSIDE RECORDS SUMMARY | 2024-07-10 16:27 | XMS_ITS | Clinical Summary ---
Author Organization [facility] Address [facility] [place] [address] Care Team Providers Care Gas Blender Name Role Phone Bart Posey NP Primary Care Provider [phone] Adiel Romero MD Unavailable [phone] Social History Tobacco Use Types Packs/Day Years [...] Regular Well Visit/Exam 18-64 12/01/1995 Covid-19 Vaccine (2023-2 5 season) 2024 07/30/2020 Influenza Vaccine (#1) [...] Read Routine (OP Routine) 06/06/2023 10:35 AM ELECTRIC REPAIR SUPERVISOR Screening mammogram, encounter for from Last 3 Months or Most Recently Relevant to Health Maintenance Results * Screening Mammogram Bilateral W Mauro (06/06/2023 10:35 AM ELECTRIC REPAIR SUPERVISOR) Anatomical Region Laterality Modality Breast Bilateral Mammography Narrative 06/09/2023 4:55 PM ELECTRIC REPAIR SUPERVISOR Mammogram Technique: Bilateral Digital Breast Tomosynthesis, Bilateral C-view 2D Screening mammogram. Views obtained: bilateral craniocaudal and bilateral mediolateral oblique. Computer Aided Detection was performed. Mammogram Findings: The present examination has been compared to prior imaging studies performed at [facility] on 02/17/2021, 04/12/2022 and 05/16/2022. [...] compared to prior imaging studies performed at [facility] on 02/17/2021, 04/12/2022 and 05/16/2022. [...] Health Maintenance Insurance CIG CIG Care Teams Gas Blender Relationship Specialty Start Date End Date Bart Posey NP [address] [place], [place] [id number] PCP - General Nurse Practitioner 06/05/23 Adiel Romero MD [address] [address] Referring Physician Obstetrics and Gynecology 06/06/23
--- OUTSIDE RECORDS SUMMARY | 2024-07-10 16:27 | XMS_ITS | Patient Health Record ---
Author Organization [facility] Address [address] [place] [address] Care Team Providers Care Dobby Loom Weaver Name Role Phone Eligio Carl Primary Care Provider UnavailAlex Cruz Unavailable [phone] Saira Barroso Unavailable [phone] [employer], Provider Unavailable Unavailab le Allergies No [...] Status Risk Notes Problem Shortness of breath (255831662) Shortness of breath (R06.02) Active confirmed Problem Chronic allergic conjunctivitis (61145815) Other chronic allergic conjunctivitis (H10.45) Active confirmed Problem Essential hypertension (83034085) Essential (primary) hypertension (I10) Active confirmed Problem Allergic rhinitis caused by pollen (disorder) (10740934) Allergic rhinitis due to pollen (J30.1) Active confirmed Problem Allergic rhinitis caused by animal hair and dander (915811261895815) Allergic rhinitis due to animal (cat) (dog) hair and dander (J30.81) Active confirmed Problem Allergic rhinitis (70683104) Other allergic rhinitis (J30.89) Active confirmed Problem Disorder of vocal cord (06134035) 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) Active confirmed Problem Allergic rhinitis caused by pollen (disorder) (40089788) Allergic rhinitis due to pollen (J30.1) Active confirmed Problem Allergic rhinitis caused by animal hair and dander (461653683284866) Allergic rhinitis due to animal (cat) (dog) hair and dander (J30.81) Active confirmed Problem Allergic rhinitis (71239424) Other allergic rhinitis (J30.89) Active confirmed Problem Chronic allergic conjunctivitis (06021663) Other chronic allergic conjunctivitis (H10.45) Active confirmed Problem Chronic cough (83054507) Chronic cough (R05.3) Active confirmed Vital Signs Oximetry 97 % 04/10/2024 Blood pressure diastolic 84 mm Hg 04/10/2024 Height 64 in 04/10/2024 Blood pressure systolic 139 mm Hg 04/10/2024 Weight 287.4 lbs 04/10/2024 BMI 49.33 kg/m2 04/10/2024 Encounters Encounter Location Date Provider Diagnosis [address] [address] 10/21/2023 Provider [facility] [address] [address] 07/12/2023 Alex Headley Allergic rhinitis du e to pollen J30.1 ; Allergic rhinitis due to animal (cat) (dog) hair and dander J30.81 ; Other allergic rhinitis J30.89 and Other chronic allergic conjunctivitis H10.45 [facility] [address] [employer] [address] [address] 07/26/2023 Alex Headley Allergic rhinitis du e to pollen J30.1 ; Allergic rhinitis due to animal (cat) (dog) hair and dander J30.81 ; Other allergic rhinitis J30.89 and Other chronic allergic conjunctivitis H10.45 [facility] [address] [place] [address] [employer] [address] [address] 08/23/2023 Alex Kayode Allergic rhinitis du e to pollen J30.1 ; Allergic rhinitis due to animal (cat) (dog) hair and dander J30.81 ; Other allergic rhinitis J30.89 and Other chronic allergic conjunctivitis H10.45 [facility] [address] [place] [address] [employer] [address] [address] 09/20/2023 Alexida Headley Allergic rhinitis du e to pollen J30.1 ; Allergic rhinitis due to animal (cat) (dog) hair and dander J30.81 ; Other allergic rhinitis J30.89 and Other chronic allergic conjunctivitis H10.45 [facility] [address] [place] [address] 10/18/2023 Alex Headley Allergic rhinitis du e to pollen J30.1 ; Allergic rhinitis due to animal (cat) (dog) hair and dander J30.81 ; Other allergic rhinitis J30.89 and Other chronic allergic conjunctivitis H10.45 [facility] [address] [place] [address] [employer] [address] [address] 11/15/2023 Alex Headley Allergic rhinitis du e to pollen J30.1 ; Allergic rhinitis due to animal (cat) (dog) hair and dander J30.81 ; Other allergic rhinitis J30.89 and Other chronic allergic conjunctivitis H10.[address] [employer] [address] [address] 12/20/2023 Alex Headley Allergic rhinitis du e to pollen J30.1 ; Allergic rhinitis due to animal (cat) (dog) hair and dander J30.81 ; Other allergic rhinitis J30.89 and Other chronic allergic conjunctivitis H10.[address] [employer] [address] [address] 01/17/2024 Alex Headley Allergic rhinitis du e to pollen J30.1 ; Allergic rhinitis due to animal (cat) (dog) hair and dander J30.81 ; Other allergic rhinitis J30.89 and Other chronic allergic conjunctivitis H10.45 [facility] [address] [place] [address] [employer] [address] [address] 02/14/2024 Alex Kayode Allergic rhinitis du e to pollen J30.1 ; Allergic rhinitis due to animal (cat) (dog) hair and dander J30.81 ; Other allergic rhinitis J30.89 and Other chronic allergic conjunctivitis H10.45 [facility] [address] [place] [address] 03/13/2024 Alexida Headley Allergic rhinitis du e to pollen J30.1 ; Allergic rhinitis due to animal (cat) (dog) hair and dander J30.81 ; Other allergic rhinitis J30.89 and Other chronic allergic conjunctivitis H10.45 [facility] [address] [place] [address] 04/10/2024 Saira Barroso Allergic rhinitis du e to pollen J30.1 ; Allergic rhinitis due to animal (cat) (dog) hair and dander J30.81 ; Other allergic rhinitis J30.89 ; Other chronic allergic conjunctivitis H10.45 ; Chronic cough R05.3 ; Shortness of breath R06.02 ; Other diseases of vocal cords J38.3 and Essential (primary) hypertension I10 [facility] [address] [place] [address] 05/15/2024 Alexida Headley Allergic rhinitis du e to pollen J30.1 ; Allergic rhinitis due to animal (cat) (dog) hair and dander J30.81 ; Other allergic rhinitis J30.89 and Other chronic allergic conjunctivitis H10.45 [facility] [address] [place] [address] 05/22/2024 Alex Headley Allergic rhinitis du e to pollen J30.1 ; Allergic rhinitis due to animal (cat) (dog) hair and dander J30.81 ; Other allergic rhinitis J30.89 and Other chronic allergic conjunctivitis H10.45 [facility] [address] [place] [address] [employer] [address] [address] 05/29/2024 Alex Headley Allergic rhinitis du e to pollen J30.1 ; Allergic rhinitis due to animal (cat) (dog) hair and dander J30.81 ; Other allergic rhinitis J30.89 and Other chronic allergic conjunctivitis H10.45 [facility] [address] [place] [address] 06/27/2024 Alex Headley Allergic rhinitis du e to pollen J30.1 ; Allergic rhinitis due to animal (cat) (dog) hair and dander J30.81 ; Other allergic rhinitis J30.89 and Other chronic allergic conjunctivitis H10.[address] [address] 04/10/2024 Alex Headley Assessments Encounter Date Diagnosis (ICD Code) Assessment Notes Treatment Notes Treatment Clinical Notes Section Notes 07/12/2023 Allergic rhinitis due to pollen (ICD-10 [...] hair and dander (ICD-10 - J30.81) 07/12/2023 Other allergic rhinitis (ICD-10 - J30.89) [...] c/w VCD. Antonella is currently taking lisinopril. Antonella's cough is likely multifactorial, consider ARC vs [...] Of Treatment Next Appt Details Provider Name:Alex HFrancois Headley , 07/24/2024 08:30:00 AM, [facility] [employer], [address] [place] [address], [phone], Provider Name:Zamzam carlson, 10/14/2024 08:30:00 AM, [address] [employer], [address], [address], Insurance Providers Payer Name Payer Address Payer Phone Subscriber Number Group Number Insured Name Patient Relationship to Insured Coverage Start Date Coverage End Date [address] [place] [address] [id number] StephaniePadmini melchorbeth Self - patient is the insured Medical (General) History Medical History History ICD Code Essential (primary) hypertension I10 Surgical History Surgery Date(Month/Year) 2015 Hospitalization History Reason Date(Month/Year) See past surgeries
--- OUTSIDE RECORDS SUMMARY | 2024-07-10 16:27 | XMS_ITS | Encounter Summary ---
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 Name Role Phone Unavailable Primary Care Provider Unavailabl e Reason for Visit * Diagnostic Imaging (Routine) - Closed Specialty Diagnoses / Procedures Referred By Contac t Referred To Contact Procedures Breast Imaging Screening Outside Reference Transcribed Order, Provider Referral ID Status Reason Start Date Expiration Date Visits Re quested Visits Authorized [id number] Closed 06/08/2023 07/07/2024 1 1 Encounter Details Date Type Department Care Team (Late st Contact Info) Description 12/09/2017 Hospital Encounter [facility] [address] [place] [address] [phone] Social History Tobacco Use Types Packs/Day Years [...] Outside Reference (12/09/2017 12:00 AM CDT) Impressions RAD_MAMMO_[facility] - 06/08/2023 3:03 PM 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 There will be no report generated by a [facility] Radiologist. Narrative [facility]_MAMMO[facility] - 06/08/2023 3:03 PM CREATIVE ARTS THERAPIST EXAMINATION: Images For Reference Purposes Only us Provider Transcribed Order IMG MAMMO PROCEDURES Final Result [facility]MO[facility] documented in this encounter Visit Diagnoses Not on filedocumented in this encounter
== END 2024-07-10 14:42 | disposition home or self-care (01) ==
LOC: ANHIMG 14:44
PROVIDERS: PCP Nurse Practitioner Family; Visit Provider Obstetrics & Gynecology
DX: Z12.31 Encounter for screening mammogram for malignant neoplasm of breast (principal); R92.8 Other abnormal and inconclusive findings on diagnostic imaging of breast
CPT/HCPCS: 77063; 77067